=== PATIENT | male | born 1975 | race Caucasian/White ===

== ENCOUNTER 2023-12-07 20:40 | Emergency (ER) | payer MEDICARE ==
[~2023-12-07] VITALS: Ht 188 cm; Wt 72.6 kg
[~2023-12-07 20:40] MED LIST: CLON.5 PO; Clonazepam2 MG PO; Klonopin1 MG PO; LAMO5 PO; LAMOTRIGINE PO; Mirtazapine15 M1 PO; Naprosyn500 MG PO; PARO10 PO; Paxil40 MG PO; Percocet 5-3251 EACH PO; Silvadene20 GM TOP; ULTRA-LIGHT RO1 EACH MC; Ultram50 MG PO
[2023-12-07 21:00] VITALS: BP 176/89
[2023-12-07] MEDS ORDERED: Ketorolac Tromethamine 30mg Vial IM ONE (21:10)
== END 2023-12-07 21:29 | disposition home or self-care (01) ==
LOC: ER 20:40
DX: M54.50 Low back pain, unspecified (principal); G89.29 Other chronic pain; F15.10 Other stimulant abuse, uncomplicated; Z88.8 Allergy status to other drugs, medicaments and biological substances; Z88.5 Allergy status to narcotic agent; Z79.899 Other long term (current) drug therapy; F43.10 Post-traumatic stress disorder, unspecified; F17.200 Nicotine dependence, unspecified, uncomplicated
CPT/HCPCS: 96372; 99283-25; J1885